=== PATIENT | female | born 1985 | race Hispanic/Latino ===

== ENCOUNTER 2017-12-22 06:09 | Observation (INO) | payer MEDICAID ==
[~2017-12-22 06:09] MED LIST: ANCEF/STERILE WATER 2 GM/20 ML IV NR; BACITRACIN IR ONE; NACL 0.9% IR ONE
[2017-12-22] MEDS ORDERED: VERSED IV PRN (06:43)
[2017-12-22] MEDS ORDERED: ZOFRAN IV PRN ×2 (06:43→11:50)
--- NOTE | 2017-12-22 06:48 | Anesthesia Consultation ---
Anesthesia Consult and Med Hx Date of service: 12/22/17 - Airway Anesthetic Teeth Evaluation: Good ROM Head & Neck: Adequate Mental/Hyoid Distance: Adequate Mallampati Class: Class II Intubation Access Assessment: Probably Good - Pulmonary Exam CTA: Yes - Cardiac Exam Cardiac Exam: RRR - Pre-Operative Health Status ASA Pre-Surgery Classification: ASA2 Proposed Anesthetic Plan: General Nerve Block: potential pectoralis - Pulmonary Hx Smoking: Yes (FOR 3 YEARS QUIT 2015) Hx Asthma: No - Cardiovascular System Hx Hypertension: No Hx Valvular Heart Disease: No - Central Nervous System Hx Psychiatric Problems: No - Gastrointestinal Hx Gastroesophageal Reflux Disease: No - Endocrine Hx Renal Disease: No Hx Non-Insulin Dependent Diabetes: No - Other Systems Hx Alcohol Use: Yes Hx Substance Use: No Hx Cancer: Yes
--- NOTE | 2017-12-22 06:48 | Anesthesia Day of Surgery ---
Anesthesia Day of Surgery - Day of Surgery Patient Examined: Yes Patient H&P Reviewed: Yes Patient is NPO: Yes
[2017-12-22] MEDS ORDERED: NACL BACTERIOSTATIC INFILTRATI ONE (06:57)
[2017-12-22] MEDS ORDERED: TRANSDERM-SCOP TD NR (07:00)
[2017-12-22] MEDS ORDERED: SUBLIMAZE ONE ×2 (07:02→10:44)
[2017-12-22] MEDS ORDERED: DIPRIVAN 10 MG/ML IV ONE (07:02)
[2017-12-22] MEDS: LACTATED RINGERS 1,000 ML IV SCH ×2 (07:05→19:37)
[2017-12-22] MEDS ORDERED: BACITRACIN ONE (07:08)
[2017-12-22] MEDS ORDERED: MARCAINE 0.25% INFILTRATI ONE (07:08)
[2017-12-22] MEDS ORDERED: NACL 0.9% 50 ML ONE (07:09)
[2017-12-22] MEDS ORDERED: ZOFRAN ONE (09:46)
[2017-12-22] MEDS ORDERED: QUELICIN ONE (09:46)
[2017-12-22] MEDS ORDERED: DECADRON ONE (09:46)
[2017-12-22] MEDS ORDERED: XYLOCAINE MPF 2% ONE (09:46)
[2017-12-22] MEDS ORDERED: LACTATED RINGERS 1,000 ML ONE ×2 (11:31)
[2017-12-22] MEDS ORDERED: NORCO 5/325 PO PRN (11:50)
--- NOTE | 2017-12-22 12:01 | Post Operative Note ---
Pre-op diagnosis: 1. right breast cancer 2. desire for contralateral prophylactic mastectomy Post-op diagnosis: same Findings: See pathology Procedure: 1 left prophylactic mastectomy 2 right mastectomy with axillary lymph node dissection 3. Immediate reconstruction by Dr. roque Anesthesia: SONIA Surgeon: ROLANDA BARAKAT Plant Breeder Scientist: MAI FERRIS Estimated blood loss: minimal Pathology: list (1 left prophylactic mastectomy; 2 right breast with axillary content) Specimen disposition: to lab Condition: stable Disposition: PACU
[2017-12-22] MEDS ORDERED: ANCEF ONE (12:52)
[2017-12-22] MEDS: DILAUDID IV PRN ×4 (12:55→14:30)
[2017-12-22] MEDS: KEFLEX PO SCH ×2 (13:10→19:33)
[2017-12-22] MEDS ORDERED: DILAUDID ONE (13:37)
--- NOTE | 2017-12-22 17:21 | Operative Report ---
PREOPERATIVE DIAGNOSES: 1. Panniculitis. 2. Intertrigo. 3. Acquired absence of the right breast. 4. History of breast cancer status post right modified radical mastectomy. POSTOPERATIVE DIAGNOSES: 1. Panniculitis. 2. Intertrigo. 3. Acquired absence of the right breast. 4. History of breast cancer status post right modified radical mastectomy. PROCEDURE: Right lateral chest wall lipectomy. SURGEON: Kevin Higgins MD HAND BRUSH FILLER: CHERIE Bergeron. DESCRIPTION OF PROCEDURE: The patient was brought to the operating room and placed on the table in supine position. Following administration of general anesthesia, the right lateral chest wall was prepped with Betadine solution, draped in usual sterile manner. A #10 blade scalpel was used to circumferentially incise preoperative markings, deepened through subcutaneous fat down to fascia using electrocautery. Pannus was resected and sent to pathology as specimen. Hemostasis controlled using electrocautery. Closure was performed over 10 mm KELSIE drain using interrupted and running subcuticular 2-0 Monocryl sutures. Mastisol, Steri-Strips, and sterile dressings applied. The patient tolerated the procedure well and returned to recovery room in stable condition. JOB# [id number] FTW/MARK
--- NOTE | 2017-12-22 19:02 | Discharge Summary ---
Short Stay Discharge Plan Activity: no restrictions Weight Bearing Status: Full Weight Bearing Diet: regular Wound: remove dressing (72hrs) Additional Instructions: REMOVE SCOPOLAMINE PATCH FROM BEHIND LEFT EAR BY 12/25/17. FOLD PATCH TOGETHER AND DISCARD IN TRASH. WASH HANDS AFTER REMOVING PATCH. Follow up with: JOE ARROYO MD [Primary Care Provider] - 6 Weeks WORK,MEE Nichols JR, MD [Staff Physician] - 7 Days
--- NOTE | 2017-12-22 19:05 | Short Stay Summary ---
Short Stay Documentation Date of service: 12/22/17 - Allergies and Medications Current Medications: Allergies No Known Allergies Allergy (Verified 12/18/17 15:02) Home Medications Medication Instructions Recorded Confirmed Last Taken Type Tamoxifen Citrate 20 mg PO QDAY 12/18/17 12/22/17 1 Week Ago History ~12/15/17 Active Medications Acetaminophen/Hydrocodone Bitart ([place] 5/325) 2 each PO Q6H PRN PRN Reason: Pain, Moderate (4-6) Cephalexin (Keflex) 500 mg PO Q6HR BLUE Lactated Ringer's (Lactated Ringers) 1,000 mls @ 42 mls/hr IV DIRECT BLUE Last Admin: 12/22/17 07:05 Dose: 42 mls/hr Midazolam HCl (Versed) 2 mg IV PREOP PRN PRN Reason: Anxiety Stop: 12/22/17 23:59 Last Admin: 12/22/17 08:25 Dose: 2 mg Morphine Sulfate (Morphine) 2 mg IV Q4H PRN PRN Reason: Pain, Moderate (4-6) Ondansetron HCl (Zofran) 4 mg IV ONCE PRN PRN Reason: Nausea And Vomiting Ondansetron HCl (Zofran) 4 mg IV Q8H PRN PRN Reason: N/V unrelieved by Reglan Scopolamine (Transderm-Scop) 1 each TD PREOP NR Stop: 12/22/17 23:45 Last Admin: 12/22/17 06:58 Dose: 1 each - Brief post op/procedure progress note Date of procedure: 12/22/17 Pre-op diagnosis: RT Breast Cancer/Acquired Absence of Breasts/ Post-op diagnosis: same Procedure: Bilateral Breast Implant Immediate Breast Reconstruction Anesthesia: GETA Findings: 500cc [place] Silicone Gel Implants Surgeon: MEE ANTUNEZ JR Estimated blood loss: minimal Pathology: none Condition: stable - Disposition Condition at discharge: Good Short Stay Discharge Plan Additional Instructions: REMOVE SCOPOLAMINE PATCH FROM BEHIND LEFT EAR BY 12/25/17. FOLD PATCH TOGETHER AND DISCARD IN TRASH. WASH HANDS AFTER REMOVING PATCH. Follow up with: JOE ARROYO MD [Primary Care Provider] - 6 Weeks MEE ANTUNEZ JR, MD [Staff Physician] - 7 Days
--- NOTE | 2017-12-22 19:38 | Operative Report ---
PREOPERATIVE DIAGNOSES: 1. Right breast cancer. 2. Bilateral-acquired absence of breasts. 3. Status post bilateral modified radical skin-sparing mastectomies. POSTOPERATIVE DIAGNOSES: 1. Right breast cancer. 2. Bilateral-acquired absence of breasts. 3. Status post bilateral modified radical skin-sparing mastectomies. OPERATIVE PROCEDURE: 1. Immediate silicone gel implant breast reconstruction. 2. Complex closure of breast 17.5 cm. SURGEON: Kevin Higgins M.D. DESCRIPTION OF PROCEDURE: The patient was brought in to the operating room and placed on the table in supine position. Following administration of bilateral skin-sparing modified radical mastectomies by Dr. Aldridge. The pockets were inspected for hemostasis, which was performed using the electrocautery followed by placement of 500 mL silicone gel full profile implants bilaterally. Skin edges were approximated in a transverse manner using interrupted 2-0 Monocryl sutures. Dog ear deformities were trimmed bilaterally for each breast. Remaining closure was performed with interrupted and running subcuticular 2-0 Monocryl sutures. On the right breast because of the axillary lymph node dissection couple of tacking sutures were placed between the lateral breast skin and the lateral chest wall. Prior to closure, two 10 mm fluted round Robert drains were placed into the right breast and one into the left breast. Each drain was secured with interrupted 2-0 nylon sutures. Mastisol, Steri-Strips, and sterile dressing were applied. The patient tolerated the procedure well and returned to recovery room in stable condition. JOB# [id number] FTW/NTS
[2017-12-22] MEDS: MORPHINE IV PRN ×2 (19:41→23:58)
[2017-12-23] MEDS: KEFLEX PO SCH ×2 (01:11→05:46)
[2017-12-23 08:46] VITALS: BP 106/51
[2017-12-23] MEDS: MORPHINE IV PRN (09:41)
--- NOTE | 2017-12-23 10:46 | Progress Note ---
Assessment and Plan - Patient Problems (1) S/P mastectomy, bilateral Current Visit: Yes Status: Acute Plan to address problem: doing well discharge home patient already has prescriptions as written by Dr. Higgins for keflex, hydrocodone and flexril Subjective Date of service: 12/23/17 Patient Reports: Positive: no new complaints, feels better, tolerating a regular diet Objective Vital Signs - 12hr 12/22/17 12/22/17 12/23/17 23:34 23:58 00:28 Temperature 98.6 F Pulse Rate 86 Respiratory 16 17 17 Rate Blood Pressure 103/53 O2 Sat by Pulse 95 Oximetry 12/23/17 12/23/17 12/23/17 04:10 05:46 08:05 Temperature 98.1 F 98.0 F Pulse Rate 74 78 Respiratory 18 17 18 Rate Blood Pressure 101/46 106/51 O2 Sat by Pulse 96 97 Oximetry - General physical appearance well developed, no distress - Integumentary other (B mastectomy incisions dry with dressing in place;drains serosanguinous)
--- NOTE | 2017-12-23 11:38 | Operative Report ---
PREOPERATIVE DIAGNOSES: 1. Right breast cancer, status post neoadjuvant treatment. 2. Desire for contralateral prophylactic mastectomy. POSTOPERATIVE DIAGNOSES: 1. Right breast cancer, status post neoadjuvant treatment. 2. Desire for contralateral prophylactic mastectomy. PROCEDURE: 1. The patient had a left prophylactic skin-sparing mastectomy and she had a right skin-sparing mastectomy with axillary lymph node dissection. 2. Immediate reconstruction by Dr. Kevin Higgins. TYPE OF ANESTHESIA: General. ESTIMATED BLOOD LOSS: Minimal. SURGEON: Jess Aldridge M.D. HEATER ENGINEER HELPER: Dr. Raoul Perry. CO-SURGEON: Dr. Kevin Higgins for immediate reconstruction. INDICATIONS: This is a 32-year-old woman who was noted to have a large right breast cancer with axillary lymph node involvement. She has received neoadjuvant treatment and is currently here for definitive surgical procedure as above. DESCRIPTION OF PROCEDURE: The patient was brought to the operating room, laid supine on the table. After adequate general anesthesia was obtained, a right axillary roll was placed and the right arm was placed on appropriate padding. The left arm was extended ____. At this point, both breasts, axilla and chest wall were prepped and draped in the usual fashion. Attention was turned to the left side, a circumareolar skin-sparing incision was made as drawn by Dr. Higgins. Dissection was carried down in all directions and flaps were created, superiorly went to the clavicle. The breast was then mobilized from medially to laterally and then without entering the axillary fat pad. Once the breast was removed, it was marked with sutures for orientation and sent to pathology. At this point, hemostasis was ascertained and the wound was packed with a moist lap pad. Attention was then turned to the right side and again a circumareolar incision was made as drawn by Dr. Higgins. Dissection was carried out in all directions circumferentially and then skin flaps were created, again superiorly we went to the clavicle, the breast was then mobilized from medially to laterally. Once the breast was taken off the chest wall, the axillary fat pad was entered and the dissection was carried out superiorly until the axillary vein was identified. All of the fat below the axillary vein and above the thoracodorsal vessels and nerves were swept down with the specimen and the breast was divided laterally along the edge of the latissimus and removed. It was marked with sutures for orientation and sent to pathology. Hemostasis was ascertained. At this point, a moist lap pad was placed into the wound and at this point, Dr. Higgins was present to proceed with his part of the surgery. All counts reported as correct and during the first part, there was minimal blood loss. JOB# [id number] SHERYL/MARK
== END 2017-12-23 14:45 | disposition home or self-care (01) ==
LOC: OR 06:09 → 3B-SURG 11:50
PROVIDERS: ADMIT Surgery; ATTEND Surgery
DX: C50.911 Malignant neoplasm of unspecified site of right female breast (principal); M79.3 Panniculitis, unspecified; L30.4 Erythema intertrigo
CPT/HCPCS: 15839; 19307; 81025; 88309; 96374; 96375; 96376; C1789; G0378; J0330; J0690; J1100; J1170; J2250; J2270; J2405; J2704; J3010; J7120; 88307